=== PATIENT | female | born 1960 | race Caucasian/White ===

== ENCOUNTER 2017-10-27 22:47 | Emergency (ER) | payer OTHER ==
[~2017-10-27] VITALS: Ht 170.2 cm; Wt 113.2 kg
[~2017-10-27 22:47] MED LIST: LEVO175T21 PO; LOTE20TA3 PO; NORV5TAB PO; ONDA1TAB16 PO; PERC5TAB12 PO; ST J81CH PO
[2017-10-27 23:03] VITALS: BP 221/104; PULSE 83; RESP 18; TEMP 97.9; O2SAT 98
--- NOTE | 2017-10-27 23:54 | PD ---
HPI Chief Complaint: Right shoulder pain Time Seen by Provider: 23:37 Travel History International Travel<30 days: No Contact w/Intl Traveler<30days: No Traveled to known affect area: No History of Present Illness HPI The patient is a 57-year-old female who presents to the emergency department for right shoulder pain. The patient notes a one-week history of right shoulder pain. The pain is located over the lateral inferior aspect of the right shoulder, is worse with certain movements such as external and internal rotation, however, still painful at rest while she is bearing weight of the arm. 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 She is right-hand dominant. She is followed by her orthopedist, Dr. Moreland. She denies any acute trauma to the right upper extremity denies any significant swelling to the right upper extremity. She denies any numbness or tingling. The patient is currently on methotrexate for her rheumatoid arthritis. PFSH Past Medical History Arthritis: Yes High Cholesterol: Yes Diabetes: Yes Diminished Hearing: No Hypertension: Yes Immunizations Current: Yes Thyroid Disease: Yes Menopausal: Yes : 3 Para: 3 Miscarriage: 1 Past Surgical History Section: Yes Other Surgery: Yes (uterine ablation) Social History Alcohol Use: Yes (occ) Tobacco Use: No (quit 4 years ago) Substance Use: No Allergies-Medications (Allergen,Severity, Reaction): Coded Allergies: megestrol (Unverified Allergy, Intermediate, hives, 10/28/17) Reported Meds & Prescriptions Reported Meds & Active Scripts Active Review of Systems Except as stated in HPI: all other systems reviewed are Neg General / Constitutional: No: Fever Musculoskeletal: Positive: Limited ROM, Pain, No: Weakness, Edema Skin: No Rash Neurologic: No: Paresthesia, Sensory Disturbance Physical Exam Narrative GENERAL: Awake, alert, pleasant 57-year-old female who appears her stated age and is in no acute respiratory distress. SKIN: Focused skin assessment warm/dry. HEAD: Atraumatic. Normocephalic. EYES: No injection or drainage. MUSCULOSKELETAL: No obvious deformities. Patient is nontender to palpation of the right clavicle and right acromioclavicular joint. I am able to passively extend the right arm and abduct to 90 with mild pain. Internal/external rotation of the right shoulder does exacerbate her symptoms. Positive right radial pulse. Mild tenderness of the inferior aspect of the right shoulder but no obvious edema or ecchymosis. She is able to fully flex and extend the right elbow and right wrist. Intrinsic hand muscles are intact. NEUROLOGICAL: Awake and alert. No obvious cranial nerve deficits. Motor grossly within normal limits. Normal speech. Sensation was intact to the radial , median, and ulnar distribution of the right upper extremity. PSYCHIATRIC: Appropriate mood and affect; insight and judgment normal. Data Data Last Documented VS Vital Signs Date Time Temp Pulse Resp B/P (MAP) Pulse Ox O2 Delivery O2 Flow Rate FiO2 10/28/17 00:35 20 10/27/17 23:03 97.9 83 221/104 (143) 98 Orders Orders Morphine Inj (Morphine Inj) (10/28/17 00:00) Promethazine Inj (Phenergan Inj) (10/28/17 00:00) Ketorolac Inj (Toradol Inj) (10/28/17 00:00) Shoulder, Limited(2vws) (10/27/17 ) [facility] Medical Decision Making Medical Screen Exam Complete: Yes Emergency Medical Condition: Yes Medical Record Reviewed: Yes Interpretation(s) X-ray of the right shoulder reveals probable calcific tendinitis. No fracture Differential Diagnosis Differential diagnosis includes rheumatoid arthritis exacerbation, rotator cuff injury, labral tear, pathologic fracture, strain, sprain. Narrative Course X-ray of the right shoulder was obtained. The patient was administered morphine , Phenergan, and Toradol IM. X-ray reveals probable calcific tendinitis, no evidence of fracture. Patient is advised to wear her sling as needed, but to perform daily range of motion exercises. Pain medications as directed. I will hold on nonsteroidals and steroids that she is Jeanmarie on methotrexate for rheumatoid arthritis. 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 Diagnosis Primary Impression: Right shoulder pain Qualified Codes: M25.511 - Pain in right shoulder Patient Instructions: General Instructions, Narcotic given in the ED Additional Instructions: Please provide the patient a copy of her x-ray results at discharge. Medications as directed. Sling as needed, perform daily range of motion exercises. Follow-up with your orthopedist and primary physician. Med/Other Pt SpecificInfo: Prescription(s) given Scripts Hydrocodone-Acetaminophen (Mchenry) 5 Mg-325 Mg Tab 1 TAB PO Q6H Y for PAIN, #12 TAB 0 Refills Prov: Arvind Johnson MD 10/28/17 Disposition: 01 DISCHARGE HOME Condition: Stable Arvind Johnson MD Oct 27, 2017 23:54
[2017-10-28] MEDS ORDERED: PROMETHAZINE INJ 25 MG/ML VIAL IM ONE
[2017-10-28] MEDS ORDERED: KETOROLAC TROMETHAMINE 60 MG/2 ML (IM) VIAL IM ONE
[2017-10-28] MEDS ORDERED: MORPHINE SULFATE 8 MG/ML INJ IM ONE
--- NOTE | 2017-10-28 00:26 | RADRPT ---
EXAM DATE/TIME: 10/27/2017 23:54 [facility] COMPARISON: No previous studies available for comparison. INDICATIONS : Right shoulder pain, no known trauma. MEDICAL HISTORY : None. SURGICAL HISTORY : None. ENCOUNTER: Initial ACUITY: 1 week PAIN SCORE: 6/10 LOCATION: Right shoulder FINDINGS: Two view examination of the right shoulder demonstrates no evidence of fracture or dislocation. The glenohumeral and acromioclavicular joints are maintained. Probable calcific tendinitis. Bony mineral ization is normal. CONCLUSION: Probable Calcific tendinitis. No fracture. Theo Merchant MD on October 28, 2017 at 0:23 Board Certified Radiologist. This report was verified electronically.
[2017-10-28] MEDS ORDERED: METH2.5T PO (00:44)
[2017-10-28] MEDS ORDERED: LOSA25TA PO (00:44)
[2017-10-28] MEDS ORDERED: LEVO175T2 PO (00:44)
[2017-10-28] MEDS ORDERED: FOLI800T PO (00:44)
[2017-10-28] MEDS ORDERED: ALEV220T14 PO (00:44)
[2017-10-28] MEDS ORDERED: NORC5TAB PO ×2 (00:46→01:34)
[2017-10-28 01:58] VITALS: BP 177/90
== END 2017-10-28 02:03 | disposition home or self-care (01) ==
LOC: PHED 22:47
DX: M25.511 Pain in right shoulder (principal); M06.9 Rheumatoid arthritis, unspecified; E78.00 Pure hypercholesterolemia, unspecified; E11.9 Type 2 diabetes mellitus without complications; I10 Essential (primary) hypertension; E07.9 Disorder of thyroid, unspecified; Z87.891 Personal history of nicotine dependence; Z88.8 Allergy status to other drugs, medicaments and biological substances
CPT/HCPCS: 73030; 96372; 99284; J1885; J2270; J2550